=== PATIENT | female | born 1960 | race Caucasian/White ===

== ENCOUNTER 2016-05-13 05:57 | Emergency (ER) | payer SELFPAY ==
--- NOTE | 2016-05-13 07:13 | ED CLINICAL REPORT ---
Clinical Report - Physicians/Mid Levels [facility] [address] [place] [address] 05/13/2016 6:00 Patient: ARJUN SAINZ Time Seen: 06:15. Arrived- By ambulance. Historian- patient. HISTORY OF PRESENT ILLNESS Chief Complaint: EYE REDNESS and IRRITATION. This started today at about 03:30 AM, involves the left eye, is characterized as mild and has been constant and is still present. The patient sustained injury. This occurred at home. Mechanism- she was rubbing the inside of her lower eyelid and accidentally scratched "the white" of her eye with her fingernail. Mild left eye discomfort. Moderate left eye redness. Mild left eye irritation. REVIEW OF SYSTEMS No chills, fever, sweats, calf pain or chest pain. No cough, difficulty breathing, pedal edema, palpitations or abdominal pain. No constipation, diarrhea, nausea, vomiting or urinary problems. All systems otherwise negative, except as recorded above. PAST HISTORY Tetanus immunization status is unknown. Problems: Anxiety Reaction. Hypertension. Additional Surgeries: no known surgeries. Medications: Lisinopril Oral 20 mg, daily. Allergies: No Known Drug Allergy. SOCIAL HISTORY Current every day heavy tobacco smoker (cigarette)- less than 1 pack per day. Occasional alcohol use. No drug use. FAMILY HISTORY No significant family medical history. ADDITIONAL NOTES The nursing notes have been reviewed. PHYSICAL EXAM Vital Signs: 05/13/2016 06:07 BP: 180/86. HR: 66. RR: 17. O2 saturation: 100%. Temp: 97.7 F. Pain level now: 1/10. Have been reviewed. Appearance: Alert. HEENT: Pharynx normal. Rt Eye: Right eye exam normal. Eyes: Visual acuity noted- see nurse's notes. Left eyelid everted for examination. Eyelids appear normal to inspection. Corneas appear normal to inspection. Pupils equal, round and reactive to light. Accommodation normal. Funduscopic exam normal. EOMs intact. Periorbital areas appear normal to inspection. Anterior chambers clear. Anterior chambers of normal depth. Lt Eye: Injected conjunctiva. Medium sized subconjunctival hemorrhage. Neck: Neck supple. Normal inspection. CVS: Normal heart rate and rhythm. Heart sounds normal. Respiratory: No respiratory distress. Breath sounds normal. Abdomen: No organomegaly. Skin: No rash. Neuro: Mood/affect normal. PROGRESS AND PROCEDURES Course of Care: Patient is stable. Patient/family counseled. Old medical records reviewed. Disposition: Discharged. Condition: stable. CLINICAL IMPRESSION Left subconjunctival hemorrhage Hypertension. conjunctival abrasion. INSTRUCTIONS Warnings: TETANUS: You were given a tetanus shot during your visit. Make a note for future reference. GENERAL WARNINGS: Return or contact your physician immediately if your condition worsens or changes unexpectedly, if not improving as expected, or if other problems arise. Prescription Medications: Gentamicin ophthalmic ointment 0.3% : Apply 1/2 inch to inner aspect of the lower lid on the affected eye every 8 hours for 1 week. Dispense three and one half (3.5) gm. No refills. Understanding of the discharge instructions verbalized by patient and family. Follow-up with: Bryan Black MD, [facility], , [address] [place] [id number] Follow up in seven days. Call for the next available appointment. (Electronically signed by Tre Galeano MD 05/13/2016 7:52)
--- NOTE | 2016-05-13 07:13 | ED CLINICAL REPORT ---
Clinical Report - Physicians/Mid Levels [facility] [address] [place] [address] 05/13/2016 6:00 Patient: ARJUN SAINZ Time Seen: 06:15. Arrived- By ambulance. Historian- patient. HISTORY OF PRESENT ILLNESS Chief Complaint: EYE REDNESS and IRRITATION. This started today at about 03:30 AM, involves the left eye, is characterized as mild and has been constant and is still present. The patient sustained injury. This occurred at home. Mechanism- she was rubbing the inside of her lower eyelid and accidentally scratched "the white" of her eye with her fingernail. Mild left eye discomfort. Moderate left eye redness. Mild left eye irritation. REVIEW OF SYSTEMS No chills, fever, sweats, calf pain or chest pain. No cough, difficulty breathing, pedal edema, palpitations or abdominal pain. No constipation, diarrhea, nausea, vomiting or urinary problems. All systems otherwise negative, except as recorded above. PAST HISTORY Tetanus immunization status is unknown. Problems: Anxiety Reaction. Hypertension. Additional Surgeries: no known surgeries. Medications: Lisinopril Oral 20 mg, daily. Allergies: No Known Drug Allergy. SOCIAL HISTORY Current every day heavy tobacco smoker (cigarette)- less than 1 pack per day. Occasional alcohol use. No drug use. FAMILY HISTORY No significant family medical history. ADDITIONAL NOTES The nursing notes have been reviewed. PHYSICAL EXAM Vital Signs: 05/13/2016 06:07 BP: 180/86. HR: 66. RR: 17. O2 saturation: 100%. Temp: 97.7 F. Pain level now: 1/10. Have been reviewed. Appearance: Alert. HEENT: Pharynx normal. Rt Eye: Right eye exam normal. Eyes: Visual acuity noted- see nurse's notes. Left eyelid everted for examination. Eyelids appear normal to inspection. Corneas appear normal to inspection. Pupils equal, round and reactive to light. Accommodation normal. Funduscopic exam normal. EOMs intact. Periorbital areas appear normal to inspection. Anterior chambers clear. Anterior chambers of normal depth. Lt Eye: Injected conjunctiva. Medium sized subconjunctival hemorrhage. Neck: Neck supple. Normal inspection. CVS: Normal heart rate and rhythm. Heart sounds normal. Respiratory: No respiratory distress. Breath sounds normal. Abdomen: No organomegaly. Skin: No rash. Neuro: Mood/affect normal. PROGRESS AND PROCEDURES Course of Care: Patient is stable. Patient/family counseled. Old medical records reviewed. Disposition: Discharged. Condition: stable. CLINICAL IMPRESSION Left subconjunctival hemorrhage Hypertension. conjunctival abrasion. INSTRUCTIONS Warnings: TETANUS: You were given a tetanus shot during your visit. Make a note for future reference. GENERAL WARNINGS: Return or contact your physician immediately if your condition worsens or changes unexpectedly, if not improving as expected, or if other problems arise. Prescription Medications: Gentamicin ophthalmic ointment 0.3% : Apply 1/2 inch to inner aspect of the lower lid on the affected eye every 8 hours for 1 week. Dispense three and one half (3.5) gm. No refills. Understanding of the discharge instructions verbalized by patient and family. Follow-up with: Bryan Black MD, [facility], , [address] [place] [id number] Follow up in seven days. Call for the next available appointment. (Electronically signed by Tre Galeano MD 05/13/2016 7:52)
--- NOTE | 2016-05-13 07:13 | ED NURSING NOTES ---
Clinical Report - Nurses [facility] [address] [place] [address] 05/13/2016 6:00 [id number] Triage time 06:08. Acuity: LEVEL 4. Chief Complaint: REDNESS and INJURY TO LEFT EYE. 06:12. Alert. SEPSIS SCREEN: Sepsis Screen. Negative (no infection suspected/documented). VISUAL ACUITY: Visual acuity performed without corrective lenses: left eye 20/40 minus one letter; right eye 20/50; both eyes 20/30. --06:12 Karl Johansen R.N. 06:07 05/13/16. BP: 180/86. HR: 66. RR: 17. O2 saturation: 100%. Temp: 97.7 F. Pain level now: 03/31. --06:12 Karl Johansen R.N. Weight: 63.5 kg stated. Height/Length: 69 inches Per Patient. BMI: 20.7. --06:11 Karl Johansen R.N. Medications Lisinopril Oral 20 mg, daily. --06:09 Karl Johansen R.N. Medication/allergy information source: the patient. --06:12 Karl Johansen R.N. Allergies No Known Drug Allergy. --06:10 Karl Johansen R.N. History Arrived by private vehicle. Historian: patient. Accompanied by spouse. Primary physician (Jamie). Onset. (about 0330). She sustained injury. Mechanism- Scratched eye with fingernail. 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 PAST MEDICAL HX: Immunizations: up-to-date. The patient is post-menopausal. SOCIAL HX: Current every day heavy tobacco smoker- less than 1 pack per day. Occasional alcohol use. No drug use. No infectious disease exposure. ABUSE ASSESSMENT: No report of abuse. FALL RISK ASSESSMENT: Fall risk assessment completed. No fall risk identified. NUTRITIONAL RISK ASSESSMENT: The nutritional risk assessment revealed no deficiencies. FUNCTIONAL ASSESSMENT: Functional assessment: no impairments noted. LEARNING NEEDS ASSESSMENT: The learning needs assessment revealed no barriers. SKIN INTEGRITY ASSESSMENT: Skin integrity risk assessment completed. No skin integrity risk identified. --06:12 Karl Johansen R.N. PROBLEMS: Anxiety Reaction. Hypertension. --06:10 Karl Johansen R.N. ADDITIONAL SURGERIES: no known surgeries. Interventions ID band on patient. To treatment room. --06:12 Karl Johansen R.N. PHYSICAL ASSESSMENT 06:12. Ambulatory to room. GENERAL / NEURO / PSYCH: Alert. HEENT: No facial asymmetry noted. Conjunctival findings present: redness of the left conjunctiva. RESPIRATORY: Respirations not labored. SKIN: Skin is warm and dry. Normal skin turgor. --06:12 Karl Johansen R.N. NURSING PROGRESS NOTES 07:14 05/13/16. Care transferred and report received (Karl Encarnacion). --07:14 Maria M Piña R.N. 07:29 05/13/2016 TDAP IM 0.5 mL given. (Lot#: [id number], expiration date: 12/24/2017, Diagnostic Assistant: sanofi pasteur). Given in the right deltoid. Allergies verified and confirmed 5 rights. Vaccine information statement provided to the patient. --07:29 Maria M Piña R.N. DISPOSITION / DISCHARGE 07:36 05/13/16. Condition at departure: improved. No learning barriers present. Discharge instructions provided and reviewed with the patient and spouse. Reviewed medication(s) side effects information. Prescription(s) given to the patient. Patient verbalized understanding. Written instructions provided in Irish. The patient was discharged by the physician. She was discharged to work and accompanied by spouse. She left the Emergency Department ambulatory and via private vehicle. Spouse driving. FALL RISK ASSESSMENT: Fall risk assessment completed. No fall risk identified. --07:36 Maria M Piña R.N. 07:31 05/13/16. BP: 179/80 (regular adult cuff) taken on the left arm, while sitting. HR: 124 (regular). RR: 18 (regular). O2 saturation: 100% on room air. Temp: 97.7 F (oral). Pain level now: 03/31. --07:36 Maria M Piña R.N. Departure time: 07:39 May 13 2016. --07:39 Maria M Piña R.N. Locked/Released at 05/13/2016 7:40 by Maria M Piña R.N.
--- NOTE | 2016-05-13 07:13 | ED NURSING NOTES ---
Clinical Report - Nurses [facility] [address] [place] [address] 05/13/2016 6:00 [id number] Triage time 06:08. Acuity: LEVEL 4. Chief Complaint: REDNESS and INJURY TO LEFT EYE. 06:12. Alert. SEPSIS SCREEN: Sepsis Screen. Negative (no infection suspected/documented). VISUAL ACUITY: Visual acuity performed without corrective lenses: left eye 20/40 minus one letter; right eye 20/50; both eyes 20/30. --06:12 Karl Johansen R.N. 06:07 05/13/16. BP: 180/86. HR: 66. RR: 17. O2 saturation: 100%. Temp: 97.7 F. Pain level now: 03/31. --06:12 Karl Johansen R.N. Weight: 63.5 kg stated. Height/Length: 69 inches Per Patient. BMI: 20.7. --06:11 Karl Johansen R.N. Medications Lisinopril Oral 20 mg, daily. --06:09 Karl Johansen R.N. Medication/allergy information source: the patient. --06:12 Karl Johansen R.N. Allergies No Known Drug Allergy. --06:10 Karl Johansen R.N. History Arrived by private vehicle. Historian: patient. Accompanied by spouse. Primary physician (Jamie). Onset. (about 0330). She sustained injury. Mechanism- Scratched eye with fingernail. 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 PAST MEDICAL HX: Immunizations: up-to-date. The patient is post-menopausal. SOCIAL HX: Current every day heavy tobacco smoker- less than 1 pack per day. Occasional alcohol use. No drug use. No infectious disease exposure. ABUSE ASSESSMENT: No report of abuse. FALL RISK ASSESSMENT: Fall risk assessment completed. No fall risk identified. NUTRITIONAL RISK ASSESSMENT: The nutritional risk assessment revealed no deficiencies. FUNCTIONAL ASSESSMENT: Functional assessment: no impairments noted. LEARNING NEEDS ASSESSMENT: The learning needs assessment revealed no barriers. SKIN INTEGRITY ASSESSMENT: Skin integrity risk assessment completed. No skin integrity risk identified. --06:12 Karl Johansen R.N. PROBLEMS: Anxiety Reaction. Hypertension. --06:10 Karl Johansen R.N. ADDITIONAL SURGERIES: no known surgeries. Interventions ID band on patient. To treatment room. --06:12 Karl Johansen R.N. PHYSICAL ASSESSMENT 06:12. Ambulatory to room. GENERAL / NEURO / PSYCH: Alert. HEENT: No facial asymmetry noted. Conjunctival findings present: redness of the left conjunctiva. RESPIRATORY: Respirations not labored. SKIN: Skin is warm and dry. Normal skin turgor. --06:12 Karl Johansen R.N. NURSING PROGRESS NOTES 07:14 05/13/16. Care transferred and report received (Karl Encarnacion). --07:14 Maria M Piña R.N. 07:29 05/13/2016 TDAP IM 0.5 mL given. (Lot#: [id number], expiration date: 12/24/2017, Geriatric Case Manager: sanofi pasteur). Given in the right deltoid. Allergies verified and confirmed 5 rights. Vaccine information statement provided to the patient. --07:29 Maria M Piña R.N. DISPOSITION / DISCHARGE 07:36 05/13/16. Condition at departure: improved. No learning barriers present. Discharge instructions provided and reviewed with the patient and spouse. Reviewed medication(s) side effects information. Prescription(s) given to the patient. Patient verbalized understanding. Written instructions provided in Latvian. The patient was discharged by the physician. She was discharged to work and accompanied by spouse. She left the Emergency Department ambulatory and via private vehicle. Spouse driving. FALL RISK ASSESSMENT: Fall risk assessment completed. No fall risk identified. --07:36 Maria M Piña R.N. 07:31 05/13/16. BP: 179/80 (regular adult cuff) taken on the left arm, while sitting. HR: 124 (regular). RR: 18 (regular). O2 saturation: 100% on room air. Temp: 97.7 F (oral). Pain level now: 03/31. --07:36 Maria M Piña R.N. Departure time: 07:39 May 13 2016. --07:39 Maria M Piña R.N. Locked/Released at 05/13/2016 7:40 by Maria M Piña R.N.
--- NOTE | 2016-05-13 07:52 | ED DISCHARGE INSTRUCTIONS ---
Patient: ARJUN SAINZ General Instructions [facility] VisitID: [id number] [address] [place] [address] 55y, F Registration Date/Time: 05/13/2016 Left subconjunctival hemorrhage Hypertension. conjunctival abrasion. INSTRUCTIONS Warnings: TETANUS: You were given a tetanus shot during your visit. Make a note for future reference. GENERAL WARNINGS: Return or contact your physician immediately if your condition worsens or changes unexpectedly, if not improving as expected, or if other problems arise. Prescription Medications: Gentamicin ophthalmic ointment 0.3% : Apply 1/2 inch to inner aspect of the lower lid on the affected eye every 8 hours for 1 week. Dispense three and one half (3.5) gm. No refills. Understanding of the discharge instructions verbalized by patient and family. Follow-up with: Bryan Black MD, [facility], , [address] [place] [address] Follow up in seven days. Call for the next available appointment. ADDITIONAL INFORMATION Subconjunctival Hemorrhage A subconjunctival hemorrhage is a result of a broken blood vessel in the white portion of the eye. It is usually painless and may be caused by coughing, sneezing or vomiting. An injury to the eye can cause this. It can also be a sign of hypertension (high blood pressure) or a bleeding disorder. Although it can look frightening, the presence of the blood is not serious. The blood will be reabsorbed without treatment within 2-3 weeks. Home Care: You may continue your usual activities. Get Prompt Medical Attention if any of the following occur: Pain in the eye Change in vision The blood does not disappear within three weeks Increasing redness or swelling of the eye Severe headache or dizziness Other signs of bruising or bleeding from other parts of your body High Blood Pressure --Established High Blood Pressure (Hypertension) is a chronic disease. The cause is unknown in most cases. It can usually be controlled with lifestyle changes and/or medicines. Symptoms of high blood pressure may include headache, dizziness, visual changes, chest pain and shortness of breath. Sometimes it causes no symptoms at all. However, even if there are no symptoms, untreated high blood pressure increases the risk of heart attack, also known as acute myocardial infarction, or AMI, and stroke. It is a serious health risk and should not be ignored. A normal blood pressure is 120/80 or less. The first (top) number is the "systolic" pressure. The second (bottom) number is the "diastolic" pressure. Hypertension exists when either the top number is 140 or higher, OR the bottom number is 90 or higher on repeated measurements. Home Care: All patients with high blood pressure should do the following to lower their pressure. If you are on medicines, then these methods may reduce or eliminate your need for medicines in the future. Begin a weight loss program if you are overweight. Reduce your salt intake. Avoid high salt foods (olives, pickles, smoked meats, salted potato chips, etc.). Do not add salt to your food at the table. Use only small amounts of salt when cooking. Begin an exercise program. Discuss with your doctor what type of exercise program would be best for you. It doesn't have to be difficult. Even brisk walking for 20 minutes three times a week is a good form of exercise. Avoid medicines which contain heart stimulants. This includes many cold and sinus decongestant pills and sprays as well as diet pills. Check the warnings about hypertension on the label. Stimulants such as amphetamine or cocaine could be lethal for someone with hypertension. Never take these. Limit your caffeine intake or switch to caffeine-free products. Stop smoking. If you are a long-time smoker, this can be hard. Enroll in a stop-smoking program to improve your chance of success. Learning how to handle stress better is an important part of any program to lower blood pressure. Learn about relaxation methods such as meditation, yoga or biofeedback. If medicines were prescribed, take them exactly as directed. Missing doses may cause your blood pressure get out of control. Consider buying an automatic blood pressure machine (available at most pharmacies). Use this to monitor your blood pressure at home and report the results to your doctor. Follow Up: Regular visits to your own physician for blood pressure checks and medicine adjustment is an important part of your care. Make a follow-up appointment as directed by our staff. Get Prompt Medical Attention if any of the following occur: Chest pain or shortness of breath Severe headache Throbbing or rushing sound in the ears Nosebleed Sudden severe abdominal pain Extreme drowsiness, confusion or fainting Dizziness or vertigo (dizziness with spinning sensation) Weakness of an arm or leg or one side of the face Difficulty with speech or vision Diphtheria Toxoid Adsorbed, Pertussis Vaccine, Acellular (Adsorbed), Tetanus Toxoid, Adsorbed Suspension for injection What is this medicine? DIPHTHERIA and TETANUS TOXOIDS; PERTUSSIS VACCINE (dif THEER ee uh and TET n us TOK soids; per TUS iss vak SEEN) is used to prevent diphtheria, tetanus, and pertussis infections. How should I use this medicine? This vaccine is for injection into a muscle. It is given by a health patient care manager. A copy of Vaccine Information Statements will be given before each vaccination. Read this sheet carefully each time. The sheet may change frequently. Talk to your vascular tech regarding the use of this vaccine in children. While the DTP vaccine may be given to children ages 6 weeks to 7 years and the Tdap vaccine may be given to children at least 10 years old, precautions do apply. What side effects may I notice from receiving this medicine? Side effects that you should report to your doctor or health patient care manager as soon as possible: allergic reactions like skin rash, itching or hives, swelling of the face, lips, or tongue breathing problems fever of 103 degrees F or more flu-like symptoms inconsolable crying infection pain, tingling, numbness in the hands or feet seizures swelling of arm or leg that was injected unusually weak or tired Side effects that usually do not require immediate medical attention (report these side effects to your doctor or health patient care manager if they continue or are bothersome): fussy, irritable loss of appetite fever of 102 degrees F or less pain, tenderness, redness, swelling, or a 'knot' at site where injected vomiting What may interact with this medicine? immune globulin medicines that suppress your immune function like adalimumab, anakinra, infliximab medicines to treat cancer medicines that treat or prevent blood clots like warfarin, enoxaparin, and dalteparin steroid medicines like prednisone or cortisone What if I miss a dose? It is important not to miss your dose. Call your doctor or health patient care manager if you are unable to keep an appointment. Where should I keep my medicine? This drug is given in a hospital or clinic and will not be stored at home. What should I tell my health care provider before I take this medicine? They need to know if you have any of these conditions: blood disorders like hemophilia fever or infection immune system problems neurologic disease seizures an unusual or allergic reaction to vaccines, thimerosal, latex, other medicines, foods, dyes, or preservatives or trying to get breast-feeding What should I watch for while using this medicine? See your health care provider for all shots of this vaccine as directed. To have protection from infection, you must have 3 shots of this vaccine plus boosters as needed. Tell your doctor right away if you have any serious or unusual side effects after getting this vaccine. You have been given the following additional information: Subconjunctival Hemorrhage Hypertension, Established Diphtheria Toxoid Adsorbed, Pertussis Vaccine, Acellular (Adsorbed), Tetanus Toxoid, Adsorbed Suspension for injection (Electronically signed by Tre Galeano MD 05/13/2016 7:52)
--- NOTE | 2016-05-13 07:52 | ED ORDER SUMMARY ---
..... Patient: ARJUN SAINZ OrderSheet [facility] VisitID: [id number] [address] [place] [address] 55y, F Registration Date/Time: 05/13/2016 ORDER SHEET Weight: 63.5 kg (stated) Allergies: No Known Drug Allergy GENERAL ORDERS: MEDICATION ORDERS: Tdap IM 0.5 mL (NOW) (07:18 05/13/2016 Farhana CRISTINA) (7:29 Donny R.NJosias) IV FLUIDS: ORDER SHEET NOTES: [Electronically signed by Maria M Piña R.N. (07:40 05/13/2016)] [Electronically signed by Tre Galeano MD (07:52 05/13/2016)] [Electronically locked/signed by Maria M Piña R.N. (07:40 05/13/2016)]
--- NOTE | 2016-05-13 07:52 | ED MED RECONCILIATION SUMMARY ---
Patient: ARJUN SAINZ Medication Reconciliation Report [facility] VisitID: [id number] [address] [place] [address] 55y, F Registration Date/Time: 05/13/2016 Weight: 63.5 kg Height/Length: 69 in. BMI: 20.7 ALLERGIES: No Known Drug Allergy The patient's Home Medications are listed below: THE FOLLOWING MEDICATIONS NEED TO BE RECONCILED: Lisinopril Oral 20 mg, daily The source(s) of the original Home Medication information: patient The following Medications were given to the patient in the Emergency Department: TDAP [IM] IM 0.5 mL, administered: 05/13/2016 7:29:00 AM The following Medications were prescribed to the patient: Gentamicin ophthalmic ointment 0.3% : Apply 1/2 inch to inner aspect of the lower lid on the affected eye every 8 hours for 1 week. Dispense three and one half (3.5) gm. No refills. -- Tre Galeano MD
--- NOTE | 2016-05-13 07:52 | ED DISCHARGE INSTRUCTIONS ---
Patient: ARJUN SAINZ General Instructions [facility] VisitID: [id number] [address] [place] [address] 55y, F Registration Date/Time: 05/13/2016 Left subconjunctival hemorrhage Hypertension. conjunctival abrasion. INSTRUCTIONS Warnings: TETANUS: You were given a tetanus shot during your visit. Make a note for future reference. GENERAL WARNINGS: Return or contact your physician immediately if your condition worsens or changes unexpectedly, if not improving as expected, or if other problems arise. Prescription Medications: Gentamicin ophthalmic ointment 0.3% : Apply 1/2 inch to inner aspect of the lower lid on the affected eye every 8 hours for 1 week. Dispense three and one half (3.5) gm. No refills. Understanding of the discharge instructions verbalized by patient and family. Follow-up with: Bryan Black MD, [facility], , [address] [place] [address] Follow up in seven days. Call for the next available appointment. ADDITIONAL INFORMATION Subconjunctival Hemorrhage A subconjunctival hemorrhage is a result of a broken blood vessel in the white portion of the eye. It is usually painless and may be caused by coughing, sneezing or vomiting. An injury to the eye can cause this. It can also be a sign of hypertension (high blood pressure) or a bleeding disorder. Although it can look frightening, the presence of the blood is not serious. The blood will be reabsorbed without treatment within 2-3 weeks. Home Care: You may continue your usual activities. Get Prompt Medical Attention if any of the following occur: Pain in the eye Change in vision The blood does not disappear within three weeks Increasing redness or swelling of the eye Severe headache or dizziness Other signs of bruising or bleeding from other parts of your body High Blood Pressure --Established High Blood Pressure (Hypertension) is a chronic disease. The cause is unknown in most cases. It can usually be controlled with lifestyle changes and/or medicines. Symptoms of high blood pressure may include headache, dizziness, visual changes, chest pain and shortness of breath. Sometimes it causes no symptoms at all. However, even if there are no symptoms, untreated high blood pressure increases the risk of heart attack, also known as acute myocardial infarction, or AMI, and stroke. It is a serious health risk and should not be ignored. A normal blood pressure is 120/80 or less. The first (top) number is the "systolic" pressure. The second (bottom) number is the "diastolic" pressure. Hypertension exists when either the top number is 140 or higher, OR the bottom number is 90 or higher on repeated measurements. Home Care: All patients with high blood pressure should do the following to lower their pressure. If you are on medicines, then these methods may reduce or eliminate your need for medicines in the future. Begin a weight loss program if you are overweight. Reduce your salt intake. Avoid high salt foods (olives, pickles, smoked meats, salted potato chips, etc.). Do not add salt to your food at the table. Use only small amounts of salt when cooking. Begin an exercise program. Discuss with your doctor what type of exercise program would be best for you. It doesn't have to be difficult. Even brisk walking for 20 minutes three times a week is a good form of exercise. Avoid medicines which contain heart stimulants. This includes many cold and sinus decongestant pills and sprays as well as diet pills. Check the warnings about hypertension on the label. Stimulants such as amphetamine or cocaine could be lethal for someone with hypertension. Never take these. Limit your caffeine intake or switch to caffeine-free products. Stop smoking. If you are a long-time smoker, this can be hard. Enroll in a stop-smoking program to improve your chance of success. Learning how to handle stress better is an important part of any program to lower blood pressure. Learn about relaxation methods such as meditation, yoga or biofeedback. If medicines were prescribed, take them exactly as directed. Missing doses may cause your blood pressure get out of control. Consider buying an automatic blood pressure machine (available at most pharmacies). Use this to monitor your blood pressure at home and report the results to your doctor. Follow Up: Regular visits to your own physician for blood pressure checks and medicine adjustment is an important part of your care. Make a follow-up appointment as directed by our staff. Get Prompt Medical Attention if any of the following occur: Chest pain or shortness of breath Severe headache Throbbing or rushing sound in the ears Nosebleed Sudden severe abdominal pain Extreme drowsiness, confusion or fainting Dizziness or vertigo (dizziness with spinning sensation) Weakness of an arm or leg or one side of the face Difficulty with speech or vision Diphtheria Toxoid Adsorbed, Pertussis Vaccine, Acellular (Adsorbed), Tetanus Toxoid, Adsorbed Suspension for injection What is this medicine? DIPHTHERIA and TETANUS TOXOIDS; PERTUSSIS VACCINE (dif THEER ee uh and TET n us TOK soids; per TUS iss vak SEEN) is used to prevent diphtheria, tetanus, and pertussis infections. How should I use this medicine? This vaccine is for injection into a muscle. It is given by a health child care counselor. A copy of Vaccine Information Statements will be given before each vaccination. Read this sheet carefully each time. The sheet may change frequently. Talk to your promotor group ticket sales regarding the use of this vaccine in children. While the DTP vaccine may be given to children ages 6 weeks to 7 years and the Tdap vaccine may be given to children at least 10 years old, precautions do apply. What side effects may I notice from receiving this medicine? Side effects that you should report to your doctor or health child care counselor as soon as possible: allergic reactions like skin rash, itching or hives, swelling of the face, lips, or tongue breathing problems fever of 103 degrees F or more flu-like symptoms inconsolable crying infection pain, tingling, numbness in the hands or feet seizures swelling of arm or leg that was injected unusually weak or tired Side effects that usually do not require immediate medical attention (report these side effects to your doctor or health child care counselor if they continue or are bothersome): fussy, irritable loss of appetite fever of 102 degrees F or less pain, tenderness, redness, swelling, or a 'knot' at site where injected vomiting What may interact with this medicine? immune globulin medicines that suppress your immune function like adalimumab, anakinra, infliximab medicines to treat cancer medicines that treat or prevent blood clots like warfarin, enoxaparin, and dalteparin steroid medicines like prednisone or cortisone What if I miss a dose? It is important not to miss your dose. Call your doctor or health child care counselor if you are unable to keep an appointment. Where should I keep my medicine? This drug is given in a hospital or clinic and will not be stored at home. What should I tell my health care provider before I take this medicine? They need to know if you have any of these conditions: blood disorders like hemophilia fever or infection immune system problems neurologic disease seizures an unusual or allergic reaction to vaccines, thimerosal, latex, other medicines, foods, dyes, or preservatives or trying to get breast-feeding What should I watch for while using this medicine? See your health care provider for all shots of this vaccine as directed. To have protection from infection, you must have 3 shots of this vaccine plus boosters as needed. Tell your doctor right away if you have any serious or unusual side effects after getting this vaccine. You have been given the following additional information: Subconjunctival Hemorrhage Hypertension, Established Diphtheria Toxoid Adsorbed, Pertussis Vaccine, Acellular (Adsorbed), Tetanus Toxoid, Adsorbed Suspension for injection (Electronically signed by Tre Galeano MD 05/13/2016 7:52)
--- NOTE | 2016-05-13 07:52 | ED MAR SUMMARY ---
..... Medication Administration Record [facility] [address] [place] [address] Patient: ARJUN SAINZ Visit ID: [id number] 55y, F Weight: 63.5 kg Height/Length: 69 in BMI: 20.7 ALLERGIES: No Known Drug Allergy Given 07:29 05/13/2016 Maria M Piña R.N. Medication Administered: TDAP [IM], Dose: 0.5 mL IM. Medication Ordered: Tdap IM 0.5 mL (NOW).
--- NOTE | 2016-05-13 07:52 | ED MAR SUMMARY ---
..... Medication Administration Record [facility] [address] [place] [address] Patient: ARJUN SAINZ Visit ID: [id number] 55y, F Weight: 63.5 kg Height/Length: 69 in BMI: 20.7 ALLERGIES: No Known Drug Allergy Given 07:29 05/13/2016 Maria M Piña R.N. Medication Administered: TDAP [IM], Dose: 0.5 mL IM. Medication Ordered: Tdap IM 0.5 mL (NOW).
--- NOTE | 2016-05-13 07:52 | ED ORDER SUMMARY ---
..... Patient: ARJUN SAINZ OrderSheet [facility] VisitID: [id number] [address] [place] [address] 55y, F Registration Date/Time: 05/13/2016 ORDER SHEET Weight: 63.5 kg (stated) Allergies: No Known Drug Allergy GENERAL ORDERS: MEDICATION ORDERS: Tdap IM 0.5 mL (NOW) (07:18 05/13/2016 Farhana CRISTINA) (7:29 Donny R.NJosias) IV FLUIDS: ORDER SHEET NOTES: [Electronically signed by Maria M Piña R.N. (07:40 05/13/2016)] [Electronically signed by Tre Galeano MD (07:52 05/13/2016)] [Electronically locked/signed by Maria M Piña R.N. (07:40 05/13/2016)]
--- NOTE | 2016-05-13 07:52 | ED MED RECONCILIATION SUMMARY ---
Patient: ARJUN SAINZ Medication Reconciliation Report [facility] VisitID: [id number] [address] [place] [address] 55y, F Registration Date/Time: 05/13/2016 Weight: 63.5 kg Height/Length: 69 in. BMI: 20.7 ALLERGIES: No Known Drug Allergy The patient's Home Medications are listed below: THE FOLLOWING MEDICATIONS NEED TO BE RECONCILED: Lisinopril Oral 20 mg, daily The source(s) of the original Home Medication information: patient The following Medications were given to the patient in the Emergency Department: TDAP [IM] IM 0.5 mL, administered: 05/13/2016 7:29:00 AM The following Medications were prescribed to the patient: Gentamicin ophthalmic ointment 0.3% : Apply 1/2 inch to inner aspect of the lower lid on the affected eye every 8 hours for 1 week. Dispense three and one half (3.5) gm. No refills. -- Tre Galeano MD
== END 2016-05-13 07:39 | disposition home or self-care (01) ==
LOC: ED SRH 05:57
DX: S05.00XA Injury of conjunctiva and corneal abrasion without foreign body, unspecified eye, initial encounter (principal); H11.32 Conjunctival hemorrhage, left eye; W22.8XXA Striking against or struck by other objects, initial encounter; Y92.9 Unspecified place or not applicable; I10 Essential (primary) hypertension; F17.210 Nicotine dependence, cigarettes, uncomplicated; Z79.899 Other long term (current) drug therapy